=== PATIENT | male | born 1975 | race Hispanic/Latino ===

== ENCOUNTER 2017-06-04 17:14 | Emergency (ER) | payer SELFPAY ==
[2017-06-04] MEDS ORDERED: Ketorolac Tromethamine 60 MG/2 ML VIAL ONE (17:55)
[2017-06-04] MEDS ORDERED: Bicillin LA 1.2 MILLION UNITS/2 ML SYRINGE ONE (17:55)
== END 2017-06-04 18:28 | disposition home or self-care (01) ==
LOC: SCSER 17:14
DX: J02.9 Acute pharyngitis, unspecified (principal)
CPT/HCPCS: 96372; J0561; J1885

== ENCOUNTER 2024-06-18 09:25 | Outpatient (CLI) | payer OTHER | END 2024-06-18 09:26 | disposition home or self-care (01) | LOC: BICRAD 09:25 | PROVIDERS: ATTEND Internal Medicine | DX: Z02.71 Encounter for disability determination (principal); M77.31 Calcaneal spur, right foot ==